=== PATIENT | female | born 1955 | race Caucasian/White ===

== ENCOUNTER → 2016-06-18 | Outpatient (CLI) | payer BC ==
[~2016-06-18] MED LIST: ZOLOFT PO
--- NOTE | ~2016-06-18 | MY11 ---
[facility] A Service of [facility] RADIOLOGY TEXT RESULTS PATIENT: BUNNY MCKEON LOCATION: [facility] : 57 UNIT #: [id number] AGE: [address]: Theresa Avalos SEX: F ORDER DR: [id number] [facility] [address] [place], [place] [address] [id number] O MR#: [id number] Acc #: [id number] NAME: BUNNY MCKEON : 1955 SEX: F STUDY DATE/TIME: 06/18/2016 10:44 UNIT: [facility] ROOM: STUDY DESCRIPTION: MY Mammogram Screening Dig Chilo Attending Physician: Theresa Avalos A.P.R.N. Ordering Physician: Theresa Avalos A.P.R.N. Primary Care Physician: Theresa Avalos A.P.R.N. MEDICAL IMAGING REPORT This report is preliminary unless electronic signature is present EXAM Bilateral digital screening mammogram with CAD COMPARISON May 04, 2013; May 25, 2010; May 04, 2009; April 13, 2008 and September 05, 2005. Breast cancer screening. 61-year-old asymptomatic female. No personal or family history of breast cancer. FINDINGS There are scattered fibroglandular densities. There are no suspicious findings in the right breast. In the middle third of the medial left breast only seen on CC projection there is a 5.0 mm asymmetry which was not seen on comparison exams. This may possibly reflect summation artifact. IMPRESSION 1. No mammographic evidence of malignancy in the right breast. 2. Left breast asymmetry, possibly representing summation artifact only seen on CC view. Further evaluation with spot compression CC view as well as full field rolled medial and rolled lateral CC views is recommended, possibly followed by left breast ultrasound. Patients over the age of 40 are entered into a reminder system with target due date for the next mammogram. A result letter will also be sent to the patient. BIRADS 0 Incomplete: Need Additional Imaging Evaluation and/or Prior Mammograms for Comparison Dictated by... Yang Walsh M.D. [facility] A Service of [facility] RADIOLOGY TEXT RESULTS PATIENT: BUNNY MCKEON LOCATION: [facility] : 57 UNIT #: [id number] AGE: [address]: Theresa Avalos SEX: F ORDER DR: THIS IS AN ELECTRONICALLY VERIFIED REPORT Yang Walsh M.D. at 06/18/2016 5:28 PM Michelle TD: 06/18/2016 11:21 JOB #: [id number] MEDICAL IMAGING REPORT Page 1 of 1 COPY
== END | disposition home or self-care (01) ==
LOC: CWCC 10:20
DX: Z12.31 Encounter for screening mammogram for malignant neoplasm of breast (principal); N64.89 Other specified disorders of breast
CPT/HCPCS: G0202

== ENCOUNTER → 2016-07-02 | Outpatient (CLI) | payer BC ==
--- NOTE | ~2016-07-02 | US24 ---
[facility] A Service of [facility] RADIOLOGY TEXT RESULTS PATIENT: BUNNY MCKEON LOCATION: [facility] : 57 UNIT #: [id number] AGE: [address]: Griselda Deluca MD SEX: F ORDER DR: [id number] [facility] [address] [place], [place] [address] [id number] O MR#: [id number] Acc #: [id number] NAME: BUNNY MCKEON : 1955 SEX: F STUDY DATE/TIME: 07/02/2016 9:24 UNIT: [facility] ROOM: STUDY DESCRIPTION: US Breast Unilateral Attending Physician: Griselda Deluca M.D. Referring Physician: Griselda Deluca M.D. Ordering Physician: Griselda Deluca M.D. Primary Care Physician: Theresa Avalos A.P.R.N. MEDICAL IMAGING REPORT This report is preliminary unless electronic signature is present EXAM Left breast ultrasound 07/02. INDICATIONS Nodular densities seen on screening exam and additional views today. FINDINGS For full report, see mammogram report dated 07/02/2016. BIRADS: 3 Probably benign finding; short interval follow up suggested. Dictated by... Neo Ponce Jr., M.D. THIS IS AN ELECTRONICALLY VERIFIED REPORT Neo Ponce Jr., M.D. at 07/02/2016 5:04 PM BARRETT/easton TD: 07/02/2016 11:05 JOB #: [id number] MEDICAL IMAGING REPORT Page 1 of 1 COPY
--- NOTE | ~2016-07-02 | MY7 ---
[facility] A Service of [facility] & [facility] RADIOLOGY TEXT RESULTS PATIENT: BUNNY MCKEON LOCATION: [facility] : 57 UNIT #: [id number] AGE: [address]: Griselda Deluca MD SEX: F ORDER DR: [id number] [facility] [address] [place], [place] [address] [id number] O MR#: [id number] Acc #: [id number] NAME: BUNNY MCKEON : 1955 SEX: F STUDY DATE/TIME: 07/02/2016 8:45 UNIT: [facility] ROOM: STUDY DESCRIPTION: MY Mammogram Dx Dig Lt Attending Physician: Griselda Deluca M.D. Referring Physician: Griselda Deluca M.D. Ordering Physician: Griselda Deluca M.D. Primary Care Physician: Theresa Avalos A.P.R.N. MEDICAL IMAGING REPORT This report is preliminary unless electronic signature is present EXAM Diagnostic left mammogram 06/1979 INDICATION Asymmetric density seen on recent screening exam in the medial left breast. FINDINGS Rolled medial and lateral CC views were obtained in addition to a spot compression CC view and a standard true lateral view. Study is reviewed with an FDA-approved CAD device. Comparison made with 06/18/2016, 05/04/2013, and 05/25/2010. A faint nodular asymmetry persists on the additional images today. It is in the extreme medial breast, and on the left true lateral view, it may be in the inferior aspect just below the skin. There is no associated microcalcification. Ultrasound was performed of the lower inner left breast. Ultrasound is normal. Given the faintness of this lesion and its extremely small size, would simply recommend a 6-month follow up mammogram of this lesion to document stability or improvement. Findings were discussed with the patient at the time of her examination today. She voiced understanding and agreement. IMPRESSION Probably benign mammogram. There is an extremely faint new very small nodule in the medial left breast which is probably in the lower hemisphere. 6-month follow up mammogram recommended. Patient's over the age of 40 are entered into a reminder system with target due date for the next mammogram. BIRADS: 3 Probably benign finding; short interval followup suggested. [facility] A Service of [facility] RADIOLOGY TEXT RESULTS PATIENT: BUNNY MCKEON LOCATION: [facility] : 57 UNIT #: [id number] AGE: [address]: Griselda Deluca MD SEX: F ORDER DR: Dictated by... Neo Ponce Jr., M.D. THIS IS AN ELECTRONICALLY VERIFIED REPORT Neo Ponce Jr., M.D. at 07/02/2016 5:04 PM BARRETT/aleah TD: 07/02/2016 11:12 JOB #: [id number] MEDICAL IMAGING REPORT Page 1 of 1 COPY
== END | disposition home or self-care (01) ==
LOC: CMAM 08:08
DX: R92.8 Other abnormal and inconclusive findings on diagnostic imaging of breast (principal); N63 Unspecified lump in breast
CPT/HCPCS: 76641; G0206